=== PATIENT | male | born 1940 | race Caucasian/White ===

== ENCOUNTER → 2016-03-28 | Outpatient (CLI) | payer MEDICARE ==
[~2016-03-28] MED LIST: ASPI81CH CHEW; CENTTAB9 PO; FLOR250C PO; IRON325T2 PO; MIRA33504 PO; MULT1CHW70; OMEG1CAP50; OMEG300C PO; POLY119S PO; RED600TA PO; ST JTAB PO
[2016-03-28 13:20] LABS: HEMATOCRIT 39.5 % (39.0-51.0); MEAN CELL VOLUME 94.3 FL (80.0-100.0); MEAN CORPUSCULAR HEMOGLOBIN 31.9 PG (27.0-34.0); MEAN CORPUSCULAR HGB CONC 33.8 % (32.0-36.0); PLATELET COUNT 203 TH/MM3 (150-450); RED BLOOD COUNT 4.18 MIL/MM3 (4.50-5.90); RED CELL DISTRIBUTION WIDTH 13.9 % (11.6-17.2); REVIEW FLAG FINAL; WHITE BLOOD COUNT 6.3 TH/MM3 (4.0-11.0)
[2016-03-28 13:50] LABS: BLOOD, URINE NEG (NEG); GLUCOSE,URINE NEG (NEG); KETONE, URINE NEG (NEG); NITRITE,URINE NEG (NEG); PH, URINE 5.5 (5.0-8.5); URINE COLOR YELLOW (YELLW/STRAW)
[2016-03-28 13:52] LABS: ALT (GPT) 22 U/L (12-78); ANION GAP 6 MEQ/L (5-15); AST (GOT) 18 U/L (15-37); BICARBONATE 28.9 MEQ/L (21.0-32.0); BLOOD UREA NITROGEN 14 MG/DL (7-18); CHLORIDE 105 MEQ/L (98-107); GLOMERULAR FILTRATION RATE 62 ML/MIN (>89); GLUCOSE,FASTING 96 MG/DL (74-99); SODIUM (NA) 140 MEQ/L (136-145)
[2016-03-28 13:55] LABS: ALKALINE PHOSPHATASE 58 U/L (45-117); COMMENT (UR) CULT NOT INDICATED; CULTURE IF INDICATED CULT NOT INDICATED; HDL CHOLESTEROL 63.3 MG/DL (40.0-60.0); LDL CHOLESTEROL 106 MG/DL (0-99); TOTAL BILIRUBIN ADULT 0.5 MG/DL (0.2-1.0)
== END ==
LOC: PLAB 03-27 10:46
PROVIDERS: ATTEND Family Medicine
DX: Z00.00 Encounter for general adult medical examination without abnormal findings (principal); E78.5 Hyperlipidemia, unspecified; Z12.5 Encounter for screening for malignant neoplasm of prostate
CPT/HCPCS: 36415; 80053; 80061; 81001; 85027; G0103

== ENCOUNTER → 2016-09-21 | Outpatient (CLI) | payer MEDICARE ==
[~2016-09-21] MED LIST changes: -CENTTAB9 PO; +DOXY100C PO; -IRON325T2 PO; +LAMI250T PO; -MIRA33504 PO; -MULT1CHW70; -OMEG300C PO; -POLY119S PO; -ST JTAB PO
[2016-09-25 19:54] LABS: LYME DISEASE 18KD IGG BAND NON-REACTIVE (()); LYME DISEASE 23 IGG BAND NON-REACTIVE (()); LYME DISEASE 23KD IGM BAND REACTIVE (()); LYME DISEASE 28KD IGG BAND NON-REACTIVE (()); LYME DISEASE 30KD IGG BAND NON-REACTIVE (()); LYME DISEASE 39 KD IGG BAND NON-REACTIVE (()); LYME DISEASE 39KD IGM BAND NON-REACTIVE (()); LYME DISEASE 41KD IGG BAND REACTIVE (()); LYME DISEASE 41KD IGM BAND NON-REACTIVE (()); LYME DISEASE 45KD IGG BAND NON-REACTIVE (()); LYME DISEASE 58KD IGG BAND NON-REACTIVE (()); LYME DISEASE 66KD IGG BAND NON-REACTIVE (()); LYME DISEASE 93KD IGG BAND NON-REACTIVE (()); LYME DISEASE IGM WB NEGATIVE (())
== END ==
LOC: PLAB 09:03
PROVIDERS: ATTEND Family Medicine
DX: T14.8 Other injury of unspecified body region (principal); W57.XXXA Bitten or stung by nonvenomous insect and other nonvenomous arthropods, initial encounter
CPT/HCPCS: 36415; 86617

== ENCOUNTER 2017-08-15 10:18 | Day surgery (SDC) | payer MEDICARE ==
[~2017-08-15] VITALS: Ht 188 cm; Wt 94.1 kg
[~2017-08-15 10:18] MED LIST changes: +ASPI-516 CHEW; -ASPI81CH CHEW; -DOXY100C PO; -LAMI250T PO
[2017-08-15 11:06] VITALS: BP 123/74; PULSE 58; RESP 16; TEMP 98; O2SAT 98
--- NOTE | 2017-08-15 11:11 | HHI.HP ---
History of Present Illness Chief Complaint: R LE venous insufficiency History of Present Illness 77 yo male with long-standing R LE swelling and aching especially with standing. No ulcers and no history of DVT. Has worn and failed compression. Past/Family/Social History Past Medical History arthritis Past Surgical History ortho surgery Social History nonsmoker Family History NC Home Medications Active Scripts Saccharomyces Boulardii (Florastor) 250 Mg Cap, 250 MG PO DAILY for Nutritional Supplement, #30 CAP 0 Refills Prov:Serena Horn MD 04/10/16 Reported Medications Boulder-3 Fatty Acids (Boulder 3 500 500 mg) Unknown Strength Cap 04/10/16 Aspirin (Aspirin) 81 Mg Chew, 81 MG CHEW DAILY, #30 TAB 0 Refills 04/10/16 Red Yeast Rice Extract (Red Yeast Rice) 600 Mg Tab, 1200 MG PO DAILY, #60 TAB 04/10/16 Coded Allergies: clams (Unverified Allergy, Severe, NAUSEA/VOMITING, 08/15/17) No Known Drug Allergies (Verified Allergy, Unknown, 08/15/17) oyster extract (Unverified Adverse Reaction, Severe, Nausea/Vomiting, ) Review of Systems Constitutional: DENIES: Diaphoretic episodes, Fatigue, Fever, Weight gain, Weight loss, Chills, Dizziness, Change in appetite, Night Sweats Physical Exam Neuro: alert, oriented HEENT: NC/AT Neck: no JVD Heart: reg rate Lungs: clear, nonlabored Vascular: palpable pulses Extremities: no C/C/E duplex reviewed: R AK/BK insufficiency; no DVT Caprini VTE Risk Assessment Caprini VTE Risk Assessment: No/Low Risk (score <= 1) Caprini Risk Assessment Model Point Value = 1 Point Value = 2 Point Value = 3 Point Value = 5 Age 41-60 Minor surgery BMI > 25 kg/m2 Swollen legs Varicose veins or History of unexplained or recurrent spontaneous Oral contraceptives or hormone replacement Sepsis (< 1 month) Serious lung disease, including pneumonia (< 1 month) Abnormal pulmonary function Acute myocardial infarction Congestive heart failure (< 1 month) History of inflammatory bowel disease Medical patient at bed rest Age 61-74 Arthroscopic surgery Major open surgery (> 45 min) Laparoscopic surgery (> 45 min) Malignancy Confined to bed (> 72 hours) Immobilizing plaster cast Central venous access Age >= 75 History of VTE Family history of VTE Factor V Leiden Prothrombin [id number] Lupus anticoagulant Anticardiolipin antibodies Elevated serum homocysteine Heparin-induced thrombocytopenia Other congenital or acquired thrombophilia Stroke (< 1 month) Elective arthroplasty Hip, pelvis, or leg fracture Acute spinal cord injury (< 1 month) Prophylaxis Regimen Total Risk Factor Score Risk Level Prophylaxis Regimen 0-1 Low Early ambulation 2 Moderate Order ONE of the following: *Sequential Compression Device (SCD) *Heparin 5000 units SQ BID 3-4 Higher Order ONE of the following medications: *Heparin 5000 units SQ TID *Enoxaparin/Lovenox 40 mg SQ daily (WT < 150 kg, CrCl > 30 mL/min) *Enoxaparin/Lovenox 30 mg SQ daily (WT < 150 kg, CrCl > 10-29 mL/min) *Enoxaparin/Lovenox 30 mg SQ BID (WT < 150 kg, CrCl > 30 mL/min) AND/OR *Sequential Compression Device (SCD) 5 or more Highest Order ONE of the following medications: *Heparin 5000 units SQ TID (Preferred with Epidurals) *Enoxaparin/Lovenox 40 mg SQ daily (WT < 150 kg, CrCl > 30 mL/min) *Enoxaparin/Lovenox 30 mg SQ daily (WT < 150 kg, CrCl > 10-29 mL/min) *Enoxaparin/Lovenox 30 mg SQ BID (WT < 150 kg, CrCl > 30 mL/min) AND *Sequential Compression Device (SCD) Assessment and Plan Plan R DEYANIRA LORD discussed risks and benefits with patient again. DOCU post-op. [phone] Discharge Planning today [place] [phone] Enrique Triana MD Aug 15, 2017 11:11
[2017-08-15] MEDS ORDERED: SODIUM BICARBONATE 8.4% INJ 50 ML ONE (11:59)
[2017-08-15] MEDS ORDERED: LIDOCAINE 1%/EPINEPHrine 1:100,000 SOLN 20 ML VIAL ONE (11:59)
[2017-08-15] MEDS ORDERED: MIDAZOLAM HCL 2 MG/2 ML VIAL ONE (12:01)
[2017-08-15] MEDS ORDERED: LIDOCAINE HCL 1% PF 30 ML VIAL ONE (12:04)
[2017-08-15] MEDS ORDERED: ceFAZolin INJ 1,000 MG VIAL ONE (12:06)
--- NOTE | 2017-08-15 12:27 | HHI.PR ---
cc: Enrique Triana MD Immediate Post Op Note Procedure Date: Aug 15, 2017 Pre Op Diagnosis: R LE venous insufficiency Post Op Diagnosis: R LE venous insufficiency Surgeon: Enrique Triana Road Conductor(s): none Procedure: R GSV RFA Findings: no DVT after ablation Complications: none Specimen(s) removed: none Estimated blood loss: 5mL Anesthesia: MAC Drains: None Fluids: 400mL IVF Patient to: Other (DOCU) Patient Condition: Good Implant/Devices: SEE IMPLANT LOG (if applicable) Date/Time of Procedure: SEE SURGICAL CARE RECORD Enrique Triana MD Aug 15, 2017 12:27
--- NOTE | 2017-08-15 12:36 | CATHPROC ---
eSnips HIS Report Study Information Study Number Scheduled Start Study Start 000.00 08/15/2017 Aug 15 2017 11:35AM Referring Institution Admit Source Facility Department 1 Other [facility] - [facility] Physician and Clinical Staff Initial Enrique Suárez Microbiology Instructor Victorino Montes De Oca,RN Recorder Minesh Eden,RT(R) Devora Ricks,RT(R) (BS) Equipment Time Keg Varnisher Description Size Mfg Part Number Used/Scraped CATHETER, FR7 CLOSURE FAST [id number] 11:36 BUNDLE-MEDTRONIC 100CM Used RFA 100CM *[id number] 11:36 BUNDLE-MEDTRON[employer] PACK, CELL ASSEMBLY PINNER CLOSUREFAST CFP *[id number] Used SHEATH, FR7 CLOSURE FAST [id number] 11:36 BUNDLE-MEDTRONIC 7CM Used MICROINTRODUCER *[id number] KIT, CLOSURE FAST TUMESCENT 11:36 MEDTRONIC TIK-01 *[id number] Used INFILTRATION History: Allergies Allergy Reaction Clam NAUSEA/VOMITING Oyster Nausea/Vomiting oyster extract Nausea/Vomiting clams NAUSEA/VOMITING No Known Drug Allergies Medication Medication Total Dose (Bolus/Oral) Medication Total Dosage/Unit 1% XYLOCAINE 20 mL FENTANYL 75 mcg VERSED 1.5 mg Medications (Bolus/Oral) Medication Time Given Dosage/Unit Administered By Reason VERSED 08/15/2017 12:05:02 PM 1 mg Victorino Montes De Oca 1 mg VERSED given in lab by Victorino Montes De Oca, LIU in Left Antecubital via Peripheral IV. Ordered by Enrique Warren. FENTANYL 08/15/2017 12:05:40 PM 50 mcg Victorino Montes De Oca 50 mcg FENTANYL given in lab by Victorino Montes De Oca RN in Left Antecubital via Peripheral IV. Ordered by Enrique Triana. 1% XYLOCAINE 08/15/2017 12:11:30 PM 20 mL Enrique Triana 20 mL 1% XYLOCAINE given in lab by Enrique Triana via Subcutaneous. Ordered by Enrique Triana. Right leg. VERSED 08/15/2017 12:16:45 PM 0.5 mg Victorino Montes De Oca 0.5 mg VERSED given in lab by Victorino Montes De Oca, LIU in Left Antecubital via Peripheral IV. Ordered by Enrique Perez. FENTANYL 08/15/2017 12:27:07 PM 25 mcg Victorino Montes De Oca 25 mcg FENTANYL given in lab by Victorino Montes De Oca RN in Left Antecubital via Peripheral IV. Ordered by Enrique Triana. Medication (Drip) Medication Time Given Dosage/Unit Concentration/Unit Diluent (ml) Solution ANCEF 08/15/2017 12:08:21 PM 2 g 2 g ANCEF given in lab by Victorino Montes De Oca RN via Peripheral IV. Ordered by Enrique Triana. IV Solutions 08/15/2017 12:00:21 PM 0 mL (IV) 500 NaCl .9 Patient arrived on IV Solutions in Left Antecubital via Peripheral IV. Pump/Drip Flow = 20 ml/hr usin g NaCl .9. Initial Case Assessment Cardiovascular HR Rhythm NIBP 50 sr 124/64 Edema Present Skin color Skin None Normal Warm Dry Neurological State Oriented to time-place- Alert Moves all extremities person Respiration - General Respiration Rate SpO2 (%) O2 (lpm) (B/min) 18 95 0 Chronological Log Time Study Chronological Log 11:53:00 Patient arrived via Bed. 11:53:03 Patient Name, D.O.B, / Armband Verified By R.N. 11:53:05 Consent signed by the physician and the patient and verified by the [facility] staff. 11:53:06 Pre-op and post- op instructions given; patient acknowledges understanding of instructions. 11:53:30 Verbal Stimulation=2 Physical Stimulation=2 Airway=2 Respiration=2 TOTAL=8. (0=absent, 1=li mited, 2=present) 12:00:01 A # 20 IV was noted in the Antecubital (left). Grade = 0 12:00:21 Patient arrived on IV Solutions in Left Antecubital via Peripheral IV. Pump/Drip Flow = 20 ml/hr using NaCl .9. Vitals capture started with the following parameters, Patient=Adult, Interval=5 min, Initial Pr amlclq=404 mmHg, 12:03:54 Deflation Rate=5 mmHg, Cuff placed on Right Ankle 12:04:07 MD arrived. 12:04:35 HR=50 bpm, FPAC=400/64 mmhg, SpO2=99.0 %, Resp=19 B/min, Mccabe=2 12:05:02 1 mg VERSED given in lab by Victorino Montes De Oca RN in Left Antecubital via Peripheral IV. Order ed by Enrique Triana. 12:05:40 50 mcg FENTANYL given in lab by Victorino Montes De Oca RN in Left Antecubital via Peripheral IV. O rdered by Enrique Triana. Assessment: Initial Case, HR=50 BPM, Rhythm=sr, BUPH=702/64 mmhg, Edema=None, Color=Normal, Ski n = Warm, Dry 12:06:43 Neurological: State=Alert, Ox3, [place] Respiration: Resp=18 B/min, SpO2=95 %, O2=0 lpm 12:06:48 Reference ECG taken 12:06:52 Right leg prepped with 2% chlorhexidine, and draped after a 3 min. waiting time. Time Out. Correct patient, correct procedure, correct physician, labs, allergies, and equipment verified with cath lab manager 12:07:29 team present. Fire risk assesment completed (see hard stop sheet for coding). Time Out Conc urred by MD and individual staff in procedure. 12:07:38 Case Start 12:08:21 2 g ANCEF given in lab by Victorino Montes De Oca RN via Peripheral IV. Ordered by Enrique Triana. 12:09:29 HR=39 bpm, NFEQ=698/54 mmhg, SpO2=93.0 %, Resp=12 B/min, Mccabe=2 12:11:30 20 mL 1% XYLOCAINE given in lab by Enrique Triana via Subcutaneous. Ordered by Jimmy Triana rt. Right leg. 12:11:54 Access site was . right lower leg A SHEATH, FR7 CLOSURE FAST MICROINTRODUCER 7CM was advanced into the Right Leg (lower) using th e 12:12:09 Percutaneous technique. 12:14:29 HR=51 bpm, TOHS=986/63 mmhg, SpO2=95.0 %, Resp=26 B/min, Mccabe=2 12:16:45 0.5 mg VERSED given in lab by Victorino Montes De Oca, LIU in Left Antecubital via Peripheral IV. Ord ered by Enrique Triana. 12:16:56 A CATHETER, FR7 CLOSURE FAST RFA 100CM 100CM was advanced over a wire. contrast was used fo r injections. 12:17:08 Tumescent injections down right leg. 12:17:53 Ablation started on right lower leg. 12:19:30 HR=50 bpm, DYDQ=212/57 mmhg, SpO2=90.0 %, Resp=16 B/min, Mccabe=2 12:23:39 Catheter was removed 12:24:27 HR=50 bpm, BKOT=831/57 mmhg, Resp=23 B/min, Mccabe=2 12:24:30 Sheath removed; pressure applied to access site. 12:27:07 25 mcg FENTANYL given in lab by Victorino Montes De Oca, RN in Left Antecubital via Peripheral IV. O rdered by Enrique Triana. 12:27:55 Right leg wrapped with uri bandage. End Study - Contrast Media Used In Study Contrast Total Opened (mL) Total Used (mL) Total Wasted (mL) Omnipaque 0 0 0 End Study - Radiation Exposure Fluoro Time (minutes) 0.0 End Study - Patient Disposition Complications Transferred To No Telemetry Bed
--- NOTE | 2017-08-15 18:20 | MP ---
cc: Enrique Triana MD DATE OF OPERATION: 08/15/2017 PREOPERATIVE DIAGNOSIS: Right lower extremity venous insufficiency, failed compression therapy. POSTOPERATIVE DIAGNOSIS: Right lower extremity venous insufficiency, failed compression therapy. PROCEDURE PERFORMED: Right great saphenous vein radiofrequency ablation. ATTENDING SURGEON: Enrique Triana MD ALLOPATHIC DOCTOR: None. ANESTHESIA: Local sedation. INDICATION FOR PROCEDURE: Mr. Garcia is a 77-year-old gentleman who is otherwise healthy, who has right lower extremity varicose veins and symptomatic venous insufficiency. He has failed compression therapy and a duplex suggested he anatomically could have vein ablation. He is taken to the operating room for this procedure. DESCRIPTION OF PROCEDURE: Informed consent was obtained from the patient and he was taken to the operating room and placed supine on the operating table. An appropriate timeout was taken to ensure the patient's identity, operative site, and planned procedure. The administration of 2 grams of Ancef was initiated prior to skin incision and will be discontinued after single preoperative dose. Everyone in the room agreed with a timeout and we proceeded. His right leg was prepped and draped and locally anesthetized with 1% lidocaine and a 21-gauge micropuncture needle was used to access the greater saphenous vein in the upper calf and this was exchanged using the Seldinger technique for a 7-Sinhala sheath through which a venous ClosureFast catheter was inserted. The tip of the catheter was placed 2 cm from the saphenofemoral junction and the patient's saphenous vein was anesthetized with eli-saphenous tumescent anesthesia. The vein was then segmentally ablated and the catheter and sheath were removed and pressure held for hemostasis. There were no complications. I was present and scrubbed for the entire procedure. At the end of the case, the saphenofemoral junction was noted to be widely patent with no DVT in the femoral vein. Enrique Triana MD RJAmbrosio/OPAL , 05:55 PM , 06:18 PM
== END 2017-08-15 16:00 | disposition home or self-care (01) ==
LOC: HDIC 10:18 → HDOC 10:18
PROVIDERS: ATTEND Surgery
DX: I87.2 Venous insufficiency (chronic) (peripheral) (principal); Z79.82 Long term (current) use of aspirin
CPT/HCPCS: 36475; J0690; J2250; J3010